=== PATIENT | female | born 2000 | race Caucasian/White ===

== ENCOUNTER → 2021-05-05 14:12 | Outpatient (CLI) | payer MEDICAID, SELFPAY | PROVIDERS: PCP Nurse Practitioner; Visit Provider Internal Medicine Pulmonary Disease | DX: R06.02 Shortness of breath (principal) | CPT/HCPCS: 94762 ==

== ENCOUNTER → 2021-06-04 08:01 | Outpatient (CLI) | payer MEDICAID, SELFPAY ==
[2021-06-04 08:35] VITALS: PULSE 82; PULSE 87
--- NOTE | 2021-06-04 09:34 | XR_ITS ---
FINAL REPORT CLINICAL HISTORY: SOB PT SHIELDED FINDINGS: 2 views of the chest were obtained. The heart size is normal. The mediastinum is unremarkable. The lungs are clear. There are no pleural effusions. There is no pneumothorax. There is no acute osseous abnormality. IMPRESSION: No acute cardiopulmonary process. Reviewed, Interpreted and Dictated by Darrin Crum III, MD Transcribed by Carolin Roberts Authenticated by Darrin Crum III, MD on 06/04/2021 10:51:34 AM [facility]
[2021-06-04 09:48] LABS: Basophils # 0.1 K/mm3 (0-0.2); Basophils % 0.9 % (0.1-2.0); Eosinophils # 0.4 K/mm3 (0.0-0.4); Eosinophils % 5.2 % (0.1-12.0); Hematocrit 47.1 % (37.0-47.0); Hemoglobin 15.3 g/dL (12.2-16.2); Lymphocytes # 2.5 K/mm3 (0.7-4.5); Lymphocytes % 29.2 % (10-50); Mean Corpuscular HGB Conc 32.4 g/dL (31.8-35.4); Mean Corpuscular Volume 89.6 fl (81-99); Mean Platelet Volume 9.7 fl (7.4-10.4); Monocytes # 0.4 K/mm3 (0.1-1.0); Monocytes % 4.7 % (1.7-9.3); Neutrophils # 5.1 K/mm3 (1.8-7.8); Neutrophils % 60.1 % (37.0-80.0); Platelet Count 276 K/mm3 (142-424); Red Blood Count 5.25 M/mm3 (4.20-5.40); Red Cell Distribution Width 14.6 % (11.5-17.5); White Blood Count 8.4 K/mm3 (4.8-10.8)
[2021-06-12 19:18] LABS: G002-IgE Bermuda Grass 4.93 kU/L (Class IV); G006-IgE Timothy Grass 7.76 kU/L (Class IV); I006-IgE Cockroach, German >100 kU/L (Class VI); Immunoglobulin E, Total 1559 IU/mL (6-495); M001-IgE Penicillium chrysogen 0.14 kU/L (Class 0/I); M002-IgE Cladosporium herbarum 0.16 kU/L (Class 0/I); M003-IgE Aspergillus fumigatus 0.14 kU/L (Class 0/I); M006-IgE Alternaria alternata 0.39 kU/L (Class I); T001-IgE Maple/Box Elder 5.61 kU/L (Class IV); T003-IgE Common Silver Birch 3.37 kU/L (Class III); T006-IgE Cedar, Mountain 9.04 kU/L (Class IV); T010-IgE Walnut 5.89 kU/L (Class IV); T011-IgE Maple Leaf Sycamore 5.43 kU/L (Class IV); T014-IgE Cottonwood 5.57 kU/L (Class IV); T015-IgE Ash, White 6.58 kU/L (Class IV); T070-IgE White Mulberry 3.51 kU/L (Class III); W011-IgE Thistle, Russian 7.33 kU/L (Class IV); W014-IgE Pigweed, Common 4.83 kU/L (Class IV); W018-IgE Sheep Sorrel 6.73 kU/L (Class IV)
== END ==
PROVIDERS: PCP Nurse Practitioner; Visit Provider Internal Medicine Pulmonary Disease
DX: R06.02 Shortness of breath (principal); R06.00 Dyspnea, unspecified; J45.909 Unspecified asthma, uncomplicated
CPT/HCPCS: 36415; 71046; 82785; 85025; 86003; 94060; 94618; 94640; 94727; 94729

== ENCOUNTER → 2021-06-09 16:06 | Outpatient (CLI) | payer MEDICAID, SELFPAY ==
--- NOTE | 2021-06-09 16:14 | XR_ITS ---
PROCEDURE INFORMATION: Exam: XR Right Hip Exam date and time: 06/09/2021 4:22 PM Age: 21 years old Clinical indication: Patient HX: Right hip pain for a month, no known injury. ; Additional info: Pain in unspecified hip TECHNIQUE: Imaging protocol: XR Right hip. Views: 2 or 3 views hip with pelvis when performed. COMPARISON: No relevant prior studies available. FINDINGS: Bones/joints: Unremarkable. No acute fracture. No significant degenerative change. Soft tissues: Unremarkable. IMPRESSION: No acute findings.
--- NOTE | 2021-06-09 16:15 | XR_ITS ---
PROCEDURE INFORMATION: Exam: XR Right Knee Exam date and time: 06/09/2021 4:22 PM Age: 21 years old Clinical indication: Patient HX: Right knee pain, no known injury. ; Additional info: Pain in unspecified knee TECHNIQUE: Imaging protocol: XR Right knee. Views: 3 views. COMPARISON: No relevant prior studies available. FINDINGS: Bones/joints: Normal. Good preservation of articular cartilage spaces. Soft tissues: Normal. IMPRESSION: No acute findings.
== END ==
PROVIDERS: PCP Nurse Practitioner; Visit Provider Nurse Practitioner
DX: M25.551 Pain in right hip (principal); M25.561 Pain in right knee
CPT/HCPCS: 73502; 73562